=== PATIENT | male | born 1995 | race American Indian/Alaskan Native ===

== ENCOUNTER 2020-02-04 18:47 | Emergency (ER) | payer SELFPAY ==
--- NOTE | 2020-02-04 19:12 | Emergency Department Report ---
Blank Doc - Documentation Documentation: 25-year-old male that presents with dysuria and sensation to fullness after vo iding. This initial assessment/diagnostic orders/clinical plan/treatment(s) is/are subject to change based on patient's health status, clinical progression and re- assessment by fellow clinical providers in the ED. Further treatment and workup at subsequent clinical providers discretion. Patient/guardians urged not to elope from the ED as their condition may be serious if not clinically assessed and managed. Initial orders include: 1- Patient sent to [facility] for further evaluation and treatment 2- UA 3- labs
[2020-02-04 19:13] VITALS: BP 146/79
--- NOTE | 2020-02-04 20:51 | Event Note ---
ED Screening Note Date of service: 02/04/20 Time: 20:40 ED Screening Note: Patient here reports that he has some fullness in his left lower quadrant after urinating. Patient has no urinary symptoms. Patient also does not have any medical problems. He does not have a primary care physician and he went to urgent care and sent to the ER before seen. Physical exam: Appearance. 25-year-old patient well-nourished well-developed in no acute distress. Abdomen: Soft, flat, nontender to palpate. No bladder distention, no mass or hernia. Back: No CVA tenderness. Normal exam :-Normal appearance. A/P: Patient with normal physical exam with complaints of pressure in left lower quadrant after urinating without any urinary symptoms. Patient referred to [facility] for primary care visit. He was medically screened out for nonemergent problem. I discussed with patient his diagnosis and need to follow-up at [place] This initial assessment/diagnostic orders/clinical plan/treatment(s) is/are subject to change based on patients health status, clinical progression and re-assessment by fellow clinical providers in the ED. Further treatment and workup at subsequent clinical providers discretion. Patient/guardian urged not to elope from the ED as their condition may be serious if not clinically assessed and managed. Initial orders include: CBC and chemistry is pending results. This was already ordered for patient and corrected. Urine culture
[2020-02-04 20:59] LABS: BUN/Creatinine Ratio 12; Basophils # (Auto) 0.1 K/mm3 (0.0-0.1); Basophils % (Auto) 1.1 % (0.0-1.8); Blood Urea Nitrogen 16 mg/dL (9-20); Calcium 9.4 mg/dL (8.4-10.2); Eosinophils # (Auto) 0.5 K/mm3 (0.0-0.4); Hemolysis Index 18; Lymphocytes # (Auto) 1.9 K/mm3 (1.2-5.4); Lymphocytes % (Auto) 24.8 % (13.4-35.0); Mean Corpuscular HGB Conc 33 % (32-34); Mean Corpuscular Volume 83 fl (84-94); Monocytes # (Auto) 0.7 K/mm3 (0.0-0.8); Monocytes % (Auto) 8.8 % (0.0-7.3); Platelet Count 300 K/mm3 (140-440); Red Blood Count 5.52 M/mm3 (3.65-5.03); Red Cell Distribution Width 14.1 % (13.2-15.2)
== END 2020-02-04 20:55 | disposition home or self-care (01) ==
LOC: ED 18:47
DX: R10.32 Left lower quadrant pain (principal); R30.0 Dysuria
CPT/HCPCS: 36415; 80048; 85025; 99282